=== PATIENT | female | born 1945 | race Caucasian/White ===

== ENCOUNTER 2018-06-17 14:06 | Emergency (ER) | payer OTHER ==
[~2018-06-17] VITALS: Ht 154.9 cm; Wt 49.9 kg
[~2018-06-17 14:06] MED LIST: ADV250/50 INH; ANTIVERT12.5 MG PO; ATROVENT H0.017 MG/1; CLINDAMYCIN HC300 MG PO; ENFAMIL D-V400 IU/ML; FOLIC ACID1 MG; FOLIC ACID1 MG PO; IPRATROPIUM BROM3 M2 HHN; LAC PO; LEVAQUIN750 MG PO; MEDDP PO; MEDROL DOSEPAK4 MG PO; PREDNICOT5 MG PO; PREDNISONE2.5 MG PO; PREDNISONE5 MG PO; PROS INH; SINGULAIR10 MG; VENTOLIN H0.09 MG/A1; VITAMIN C100 M1
[2018-06-17 14:07] VITALS: Ht 154.9 cm; Wt 49.9 kg
[2018-06-17 14:52] LABS: BASOPHIL % 0.3 % (0-2); PLATELET COUNT 336 x10^3mcL (130-400); RED CELL DISTRIBUTION WIDTH 17.2 % (11.5-14.5)
[2018-06-17 15:13] LABS: CALCIUM 9.3 mg/dL (8.5-10.1); CARBON DIOXIDE 35.4 mmol/L (21-32); CHLORIDE SERUM 99 mmol/L (98-107); CREATININE SERUM 0.8 mg/dL (0.6-1.0); GLUCOSE SERUM 135 mg/dL (74-106); POTASSIUM SERUM 3.9 mmol/L (3.5-5.1); SODIUM SERUM 141 mmol/L (136-145)
[2018-06-17 15:22] LABS: ALKALINE PHOSPHATASE 73 U/L (46-116); ALT/SGPT 15 U/L (14-59); AST/SGOT 17 U/L (15-37); BILIRUBIN TOTAL 0.3 mg/dL (0.20-1.00)
[2018-06-17 15:32] LABS: ALBUMIN 2.6 g/dL (3.4-5.0); TOTAL PROTEIN, SERUM 8.7 g/dL (6.4-8.2)
[2018-06-17 15:40] LABS: ERYTHROCYTE SED RATE 90 mm/hr (0-30)
[2018-06-17 15:42] LABS: C REACTIVE PROTEIN 16.8 mg/dL (<=0.9)
[2018-06-17 15:45] LABS: microscopic required? YES; urine erythrocyte TRACE (NEGATIVE)
[2018-06-17 16:10] LABS: T3 TOTAL 0.78 ng/mL
[2018-06-17 16:24] VITALS: BP 99/54
[2018-06-17 16:27] LABS: CK-MB 0.6 ng/mL (0-3.6)
[2018-06-17 16:49] LABS: FREE T4 1.39 ng/dL (0.76-1.46)
== END 2018-06-17 16:24 | disposition left against medical advice (07) ==
LOC: ED 14:06
PROVIDERS: Specialist
DX: J96.20 Acute and chronic respiratory failure, unspecified whether with hypoxia or hypercapnia (principal); J84.10 Pulmonary fibrosis, unspecified; E86.0 Dehydration; J44.9 Chronic obstructive pulmonary disease, unspecified; G62.9 Polyneuropathy, unspecified; Z88.2 Allergy status to sulfonamides; Z88.6 Allergy status to analgesic agent; Z88.0 Allergy status to penicillin
CPT/HCPCS: 84439; J1956; J2930; J7613; J7644